=== PATIENT | male | born 1975 | race Caucasian/White ===

== ENCOUNTER 2020-07-18 15:00 | Emergency (ER) | payer OTHER, SELFPAY ==
--- NOTE | ~2020-07-18 | XR_ITS ---
EXAMINATION: XR chest 2V DATE: 07/18/2020 15:43 INDICATION: Left upper chest pain. TECHNIQUE: Frontal and lateral views of the chest were obtained. COMPARISON: CT abdomen and pelvis 02/07/2017 FINDINGS: There are airspace opacities in right perihilar region. No pleural effusion or pneumothorax . The heart size is normal. IMPRESSION: 1. Airspace opacities in right perihilar region, consistent with atelectasis versus pneumonia. Reviewed, dictated and finalized at location A. ERCIAL COLLECTOR IMPRESSION: 1. Airspace opacities in right perihilar region, consistent with atelectasis ve rsus pneumonia.
[2020-07-18 15:06] VITALS: BP 156/97; PULSE 73; RESP 18; TEMP 36.8; O2SAT 100
--- NOTE | 2020-07-18 15:11 | ECG_ITS ---
Measurements Intervals [place] Rate: 62 P: 31 [place]: 193 QRS: -12 QRSD: 112 T: 33 QT: 405 QTc: 412 Interpretive Statements SINUS RHYTHM INTRAVENTRICULAR CONDUCTION DELAY DELAYED PRECORDIAL R/S TRANSITION BASELINE WANDER- II, AVF, V3 BORDERLINE ECG Electronically Signed On 07-18-2020 16:28:28 BAG PATCHER by Jesus Castaneda D.O.
[2020-07-18 15:18] LABS: Basophils Absolute Auto 0.1 K/mm3 (0.0-0.1); Basophils Percent Auto 1.1 % (0.2-1.2); Eosinophils Absolute Auto 0.1 K/mm3 (0-0.3); Eosinophils Percent Auto 1.9 % (0-4.4); Hematocrit 44.1 % (42.0-52.0); Hemoglobin 15.7 g/dL (14.0-18.0); Immature Granulocyte Absolute 0.01 K/mm3 (0.00-0.031); Immature Granulocyte Percent A 0.1 % (0-0.5); Lymphocytes Absolute Auto 2.45 K/mm3 (0.9-3.2); Mean Corpuscular HGB Conc 35.6 g/dl (32-36); Mean Corpuscular Hemoglobin 30.6 pg (26-34); Mean Platelet Volume 9.3 fl (7.4-10.4); Monocytes Absolute Auto 0.5 K/mm3 (0.1-0.6); Monocytes Percent Auto 7.4 % (2.6-8.5); Neutrophils Absolute Auto 3.8 K/mm3 (1.3-6.7); Neutrophils Percent Auto 54.5 % (45.5-73.1); Platelet Count Result 274 k/mm3 (150-375); Red Blood Count 5.13 M/mm3 (4.6-6.20); Red Cell Distribution Width 12.6 % (11.5-14.5)
--- NOTE | 2020-07-18 15:21 | ED.CHESTPAIN ---
HPI - Chest Pain General Chief Complaint: Chest Pain Stated Complaint: Chest pain Time Seen by Provider: 07/18/20 15:11 Source: patient Mode of arrival: ambulatory Limitations: no limitations History of Present Illness HPI narrative: Patient 44-year-old male who presents with left-sided chest pain localized to the left breast that has been constant since 1 AM denies similar occurrence or other complaints on arrival in no distress continues to have pain does not take anything for his symptoms denies any radiation of the pain or other areas with pain specifically no URI symptoms or dyspnea Related Data Home Medications Medication Instructions Recorded Confirmed omeprazole 40 mg PO DAILY 07/18/20 07/18/20 Allergies Allergy/AdvReac Type Severity Reaction Status Date / Time No Known Allergies Allergy Verified 07/18/20 15:11 Review of Systems Review of Systems: All systems reviewed & are unremarkable except as noted in HPI and below PMFSH Past Medical History Medical History (Updated 07/18/20 @ 19:19 by Lopez Rodrigez PA-C) Obesity Social History Social History (Updated 07/18/20 @ 15:22 by Lopez Rodrigez PA-C) Smoking status: Never smoker Gender identity (if verbalized by the patient): Male Exam Narrative: Exam Narrative: GENERAL: Well-appearing, obese, and in no acute distress. HEAD: Normocephalic, atraumatic. EYES: PERRLA and EOMI. ENT: Nares clear, no rhinorrhea or epistaxis. Mucous membranes moist. CHEST: Clear to auscultation. No respiratory distress. No wheezes rales or rhonchi HEART: Regular rate and rhythm. No murmur heard. Normal peripheral pulses. ABDOMEN: Soft, nontender, nondistended EXTREMITIES: Normal range of motion. No edema. SKIN: Warm, dry, no rash. NEURO: No focal deficits. Alert and oriented x3. PSYCH: Normal mood and affect. Course Course Emergency Course: Patient evaluated for chest pain emergency department no high risk changes and evaluation no distress resting comfortably felt appropriate for outpatient reevaluation by primary care patient provided with reasons to return vital signs and ABCs intact and stable Vital Signs Vital signs: Vital Signs Temperature 98.2 F 07/18/20 15:06 Pulse Rate 73 07/18/20 15:06 Respiratory Rate 18 07/18/20 15:06 Blood Pressure 156/97 H 07/18/20 15:06 Pulse Oximetry 100 07/18/20 15:06 Temperature 98.2 F 07/18/20 15:06 Pulse Rate 66 07/18/20 18:44 Respiratory Rate 20 07/18/20 18:44 Blood Pressure 145/88 H 07/18/20 18:44 Pulse Oximetry 100 07/18/20 18:44 MDM - Chest Pain MDM Narrative Medical decision making narrative: Patients EKGs and labs are without significant high risk changes. Cardiac risk factors were reviewed. Patient is felt likely to be low risk for ACS and reasonable for further risk stratification testing as an outpatient. Pain was not sudden or maximal in onset without tearing or ripping. quality. No other signs or symptoms to suggest aortic dissection. A low-risk Wells criteria is noted. PE is felt to be unlikely. No pneumonia or URI symptoms were seen on evaluation today. Patient is felt to b reasonable for continued evaluation as an outpatient. Patient will be Covid swab given his chest x-ray although he has no URI symptoms. Patient aware that he needs to follow with primary care to obtain his results and that he cannot get them himself Lab Data Result diagrams: 07/18/20 15:13 07/18/20 15:13 Labs: Lab Results 07/18/20 07/18/20 07/18/20 Range/Units 15:13 15:13 15:13 WBC 7.0 (4.5-10.0) K/mm3 RBC 5.13 (4.6-6.20) M/mm3 Hgb 15.7 (14.0-18.0) g/dL Hct 44.1 (42.0-52.0) % MCV 86.0 (80-100) fl MCH 30.6 (26-34) pg MCHC 35.6 (32-36) g/dl RDW 12.6 (11.5-14.5) % Plt Count 274 (150-375) k/mm3 MPV 9.3 (7.4-10.4) fl Immature Gran % (Auto) 0.1 (0-0.5) % Neut % (Auto) 54.5 (45.5-73.1) % Lymph % (Auto) 3
[2020-07-18] MEDS: KETOROLAC 30 MG/ML VIAL (*BKC) IV PUSH (15:27)
[2020-07-18 15:28] LABS: Partial Thromboplastin Time 28.6 SECONDS (22.3-36.8); Prothrombin Time 13.3 Seconds (11.1-14.7)
[2020-07-18 15:31] LABS: Anion Gap 6 mmol/L (8-16); Blood Urea Nitrogen 9 mg/dL (9-20); Calcium 9.3 mg/dL (8.4-10.2); Carbon Dioxide 34 mmol/L (22-30); Chloride 101 mmol/L (98-107); Estimated CRCL calculation 122 ml/min; Estimated Glomerular Filt Rate > 60; Glucose 85 mg/dL (75-110); Potassium 3.5 mmol/L (3.4-5.0); Sodium 141 mmol/L (137-145)
[2020-07-18 15:43] LABS: D Dimer 0.27 ug/mL (<0.48); Troponin I < 0.012 ng/mL (0.000-0.034)
[2020-07-18 16:31] VITALS: BP 134/85; PULSE 57; RESP 20; O2SAT 99
[2020-07-18 17:06] VITALS: BP 141/84; PULSE 63; RESP 20; O2SAT 99
[2020-07-18 18:08] VITALS: BP 145/88; PULSE 63; RESP 20; O2SAT 100
[2020-07-18 18:44] VITALS: BP 145/88; PULSE 66; RESP 20; O2SAT 100
[2020-07-18 19:10] LABS: Troponin I < 0.012 ng/mL (0.000-0.034)
[2020-07-18 19:29] VITALS: BP 150/98; PULSE 65; RESP 14; O2SAT 98
[2020-07-19 19:06] LABS: SARS-CoV-2 RNA PCR Negative
== END 2020-07-18 19:37 | disposition home or self-care (01) ==
PROVIDERS: Emergency Medicine; Emergency Medicine Emergency Medical Services; Emergency Provider Emergency Medicine; PCP Nurse Practitioner Family
DX: R07.9 Chest pain, unspecified (principal); Z20.822 Contact with and (suspected) exposure to COVID-19; E66.9 Obesity, unspecified; Z68.31 Body mass index [BMI] 31.0-31.9, adult; I45.9 Conduction disorder, unspecified; R94.31 Abnormal electrocardiogram [ECG] [EKG]
CPT/HCPCS: 36415; 71046; 80048; 84484; 85025; 85380; 85610; 85730; 93005; 96374; 99284; C9803; J1885; U0003

== ENCOUNTER 2020-11-11 17:51 | Emergency (ER) | payer OTHER, SELFPAY ==
--- NOTE | ~2020-11-11 | XR_ITS ---
EXAMINATION: XR chest 2V DATE: 11/11/2020 18:24 INDICATION: Chest pain. TECHNIQUE: Frontal and lateral views of the chest were obtained. COMPARISON: Chest 2 views 07/18/2020, CT abdomen and pelvis 02/07/2017 FINDINGS: The chest demonstrates clear lungs without pneumonia, pleural effusion, or pneumothorax. Th e heart size is normal. IMPRESSION: 1. No acute cardiopulmonary disease. Reviewed, dictated and finalized at location A.
--- NOTE | 2020-11-11 17:53 | ECG_ITS ---
Measurements Intervals [place] Rate: 62 P: 45 [place]: 197 QRS: -11 QRSD: 113 T: 32 QT: 429 QTc: 438 Interpretive Statements SINUS RHYTHM INTRAVENTRICULAR CONDUCTION DELAY DELAYED PRECORDIAL R/S TRANSITION BORDERLINE ECG Electronically Signed On 11-12-2020 7:45:41 CDT by Jesus Castaneda D.O.
[2020-11-11 17:58] VITALS: BP 155/99; PULSE 61; RESP 14; TEMP 37.1; O2SAT 99
[2020-11-11 18:03] VITALS: PULSE 61
[2020-11-11 18:14] LABS: Basophils Absolute Auto 0.1 K/mm3 (0.0-0.1); Eosinophils Absolute Auto 0.2 K/mm3 (0-0.3); Eosinophils Percent Auto 3.4 % (0-4.4); Hematocrit 40.8 % (42.0-52.0); Hemoglobin 14.2 g/dL (14.0-18.0); Immature Granulocyte Absolute 0.01 K/mm3 (0.00-0.031); Immature Granulocyte Percent A 0.2 % (0-0.5); Lymphocytes Absolute Auto 2.21 K/mm3 (0.9-3.2); Lymphocytes Percent Auto 37.1 % (18.3-44.2); Mean Corpuscular HGB Conc 34.8 g/dl (32-36); Mean Corpuscular Volume 86.1 fl (80-100); Mean Platelet Volume 9.6 fl (7.4-10.4); Monocytes Absolute Auto 0.6 K/mm3 (0.1-0.6); Monocytes Percent Auto 9.2 % (2.6-8.5); Neutrophils Absolute Auto 2.9 K/mm3 (1.3-6.7); Neutrophils Percent Auto 49.1 % (45.5-73.1); Platelet Count Result 250 k/mm3 (150-375); Red Blood Count 4.74 M/mm3 (4.6-6.20); Red Cell Distribution Width 12.6 % (11.5-14.5)
[2020-11-11 18:23] LABS: Anion Gap 6 mmol/L (8-16); Blood Urea Nitrogen 9 mg/dL (9-20); Calcium 9.4 mg/dL (8.4-10.2); Carbon Dioxide 30 mmol/L (22-30); Chloride 106 mmol/L (98-107); Estimated CRCL calculation 140 ml/min; Estimated Glomerular Filt Rate > 60; Glucose 105 mg/dL (75-110); Potassium 3.4 mmol/L (3.4-5.0); Sodium 142 mmol/L (137-145)
[2020-11-11 18:28] LABS: Partial Thromboplastin Time 29.5 SECONDS (22.3-36.8); Prothrombin Time 13.3 Seconds (11.1-14.7)
[2020-11-11 18:35] LABS: Troponin I < 0.012 ng/mL (0.000-0.034)
[2020-11-11] MEDS: KETOROLAC 30 MG/ML VIAL (*BKC) IV PUSH (18:47)
--- NOTE | 2020-11-11 19:05 | ED.CHESTPAIN ---
HPI - Chest Pain General Chief Complaint: Chest Pain Stated Complaint: ongoing cp Time Seen by Provider: 11/11/20 17:59 Source: patient, RN notes reviewed and old records reviewed Mode of arrival: ambulatory Limitations: no limitations History of Present Illness HPI narrative: Patient is a 45-year-old male who presents with left-sided chest pain into the shoulder has had this pain for the last several days has been constant and has actually been having this pain off and on now for weeks or even months patient has not followed up with primary care has been seen in the emergency department for similar occurrence patient has not taken anything for his symptoms and on arrival to emergency department is in no distress resting comfortably patient denies any pertinent past medical history Related Data Home Medications Medication Instructions Recorded Confirmed No Home Medications 11/11/20 11/11/20 Allergies Allergy/AdvReac Type Severity Reaction Status Date / Time No Known Allergies Allergy Verified 07/18/20 15:11 Review of Systems Review of Systems: All systems reviewed & are unremarkable except as noted in HPI and below PMFSH Past Medical History Medical History Obesity Social History Social History Smoking status: Never smoker Gender identity (if verbalized by the patient): Male Exam Narrative: Exam Narrative: GENERAL: Well-appearing, well-nourished, and in no acute distress. HEAD: Normocephalic, atraumatic. EYES: PERRLA and EOMI. ENT: Nares clear, no rhinorrhea or epistaxis. Mucous membranes moist. Oropharynx without tonsillar hypertrophy exudate or other lesions. NECK: Supple. No adenopathy or masses. CHEST: Clear to auscultation. No respiratory distress. No wheezes rales or rhonchi HEART: Regular rate and rhythm. No murmur heard. Normal peripheral pulses. ABDOMEN: Soft, nontender, nondistended EXTREMITIES: Normal range of motion. No edema. SKIN: Warm, dry, no rash. NEURO: No focal deficits. Alert and oriented x3. Cranial nerves II through XII grossly intact PSYCH: Normal mood and affect. Course Vital Signs Vital signs: Vital Signs Temperature 98.7 F 11/11/20 17:58 Pulse Rate 61 11/11/20 17:58 Respiratory Rate 14 11/11/20 17:58 Blood Pressure 155/99 H 11/11/20 17:58 Pulse Oximetry 99 11/11/20 17:58 Temperature 98.7 F 11/11/20 17:58 Pulse Rate 61 11/11/20 18:03 Respiratory Rate 14 11/11/20 17:58 Blood Pressure 155/99 H 11/11/20 17:58 Pulse Oximetry 99 11/11/20 17:58 MDM - Chest Pain MDM Narrative Medical decision making narrative: Patients EKGs and labs are without significant high risk changes. Cardiac risk factors were reviewed. Patient is felt likely to be low risk for ACS and reasonable for further risk stratification testing as an outpatient. Pain was not sudden or maximal in onset without tearing or ripping. quality. No other signs or symptoms to suggest aortic dissection. A low-risk Wells criteria is noted. PE is felt to be unlikely. No pneumonia or URI symptoms were seen on evaluation today. Patient is felt to b reasonable for continued evaluation as an outpatient. Lab Data Result diagrams: 11/11/20 18:05 11/11/20 18:05 Labs: Lab Results 11/11/20 11/11/20 11/11/20 Range/Units 18:05 18:05 18:05 WBC 6.0 (4.5-10.0) K/mm3 RBC 4.74 (4.6-6.20) M/mm3 Hgb 14.2 (14.0-18.0) g/dL Hct 40.8 L (42.0-52.0) % MCV 86.1 (80-100) fl MCH 30.0 (26-34) pg MCHC 34.8 (32-36) g/dl RDW 12.6 (11.5-14.5) % Plt Count 250 (150-375) k/mm3 MPV 9.6 (7.4-10.4) fl Immature Gran % (Auto) 0.2 (0-0.5) % Neut % (Auto) 49.1 (45.5-73.1) % Lymph % (Auto) 37.1 (18.3-44.2) % Gem % (Auto) 9.2 H (2.6-8.5) % Eos % (Auto) 3.4 (0-4.4) % Baso % (Auto) 1.0 (0.2-1.2)
[2020-11-11 19:44] VITALS: BP 130/84; PULSE 59; RESP 18; O2SAT 98
[2020-11-11 19:56] VITALS: BP 135/92; PULSE 59; RESP 18; O2SAT 99
== END 2020-11-11 20:05 | disposition home or self-care (01) ==
PROVIDERS: Emergency Medicine; Emergency Provider Family Medicine
DX: R07.9 Chest pain, unspecified (principal); E66.9 Obesity, unspecified; Z68.33 Body mass index [BMI] 33.0-33.9, adult; I45.9 Conduction disorder, unspecified
CPT/HCPCS: 36415; 71046; 80048; 84484; 85025; 85610; 85730; 93005; 96374; 99284; J1885

== ENCOUNTER 2020-12-01 01:10 | Emergency (ER) | payer BC, OTHER, SELFPAY ==
--- NOTE | ~2020-12-01 | CT_ITS ---
EXAMINATION: CT abdomen pelvis w con INDICATION: Abdominal pain TECHNIQUE: Computed tomographic images of the abdomen and pelvis were obtained after the administrati on of 100 cc of Omnipaque 350 intravenous contrast. The dose-length product (DLP) was 986.28 mGy-cm. Automated exposure control and iterative reconstruction technique were employed. COMPARISON: 02/07/2017 FINDINGS: Minimal dependent atelectasis is present in the lung bases. The heart size is normal. Calci fied coronary artery atherosclerosis is noted. The liver is diffusely low in attenuation when compare d with the spleen, consistent with hepatic steatosis. The spleen, pancreas, and adrenal glands are no rmal. There are multiple stones in the gallbladder which is mildly distended. One stone is seen at th e gallbladder neck. The kidneys are unremarkable. No pathologically enlarged abdominal or pelvic lymp h nodes are identified. There is no free intraperitoneal gas or evidence of bowel obstruction. There is chronic mild enlargement of the appendix without additional findings to suggest appendicitis. Ther e is a fat-containing umbilical hernia. There is mild lumbar spondylosis. IMPRESSION: 1. Cholelithiasis and mildly distended gallbladder. Correlate for right upper quadrant tenderness and if present, consider ultrasound and/or nuclear hepatobiliary scan. These findings and recommendations were transmitted to the Emergency Department at 0337 hours on 12/01 by the [employer] Radiologist. Reviewed, dictated and finalized at location A. IMPRESSION: 1. Cholelithiasis and mildly distended gallbladder. Correlate for right upper q uadrant tenderness and if present, consider ultrasound and/or nuclear hepatobil iary scan. These findings and recommendations were transmitted to the Emergency Department at 0337 hours on 12/01/2020 by the [employer] Radiologist.
[2020-12-01 01:13] VITALS: BP 165/105; PULSE 63; RESP 29; TEMP 36.7; O2SAT 100
--- NOTE | 2020-12-01 01:19 | ECG_ITS ---
Measurements Intervals [place] Rate: 67 P: 33 [place]: 192 QRS: 0 QRSD: 98 T: 37 QT: 399 QTc: 421 Interpretive Statements SINUS RHYTHM WITH SINUS ARRHYTHMIA BASELINE ARTIFACT- I, II, III, AVR, AVL, AVF, V1, V5 NORMAL ECG Electronically Signed On 12-01-2020 7:02:41 CDT by Jesus Castaneda D.O.
--- NOTE | 2020-12-01 01:36 | ED.ABDPAIN ---
HPI - Abdominal Pain General Chief Complaint: Abdominal Pain Stated Complaint: pt sts abd pain for last few hours Time Seen by Provider: 12/01/20 01:16 Source: patient Mode of arrival: ambulatory Limitations: no limitations History of Present Illness HPI narrative: Patient is a 45-year-old male complaining of abdominal pain, mid abdomen, 10 out of 10, sharp, radiating to back that started approximately 2 hours prior to arrival. Patient denies any chest pain, shortness of breath, nausea, vomiting, diarrhea, fever or chills. Related Data Home Medications Medication Instructions Recorded Confirmed No Home Medications 11/11/20 11/11/20 Allergies Allergy/AdvReac Type Severity Reaction Status Date / Time No Known Allergies Allergy Verified 12/01/20 01:19 Review of Systems Review of Systems: All systems reviewed & are unremarkable except as noted in HPI and below Constitutional: Constitutional: Denies body ache(s), Denies chills, Denies excessive sweating, Denies fatigue, Denies fever(s), Denies headache(s), Denies lethargy, Denies malaise, Denies weakness and Denies weight loss Eyes: Eyes: Denies blurry vision, Denies change in vision and Denies loss of vision ENT: Denies dizziness, Denies ear discharge, Denies headache(s), Denies lip swelling, Denies epistaxis, Denies nasal congestion, Denies neck pain, Denies throat swelling and Denies tongue swelling Cardiovascular: Cardiovascular: Denies chest pain, Denies chest pain at rest, Denies chest pain with activity, Denies diaphoresis, Denies rapid heart rate, Denies edema, Denies irregular heart rhythm, Denies lightheadedness, Denies palpitations, Denies dyspnea and Denies dyspnea on exertion Respiratory: Respiratory: Denies chest congestion, Denies cough, Denies hemoptysis, Denies dyspnea and Denies dyspnea on exertion Gastrointestinal: Gastrointestinal: Denies melena, Denies hematochezia, Denies diarrhea, Denies nausea, Denies vomiting and Denies hematemesis Musculoskeletal: Musculoskeletal: Denies abnormal gait, Denies deformity, Denies joint swelling, Denies limited range of motion, Denies neck pain and Denies numbness Neurologic: Denies Abnormal speech present, Denies abnormal gait, Denies confusion, Denies dizziness, Denies headache(s), Denies focal weakness, Denies loss of vision, Denies numbness, Denies Other visual disturbances, Denies Sensory deficit (Neuro) and Denies weakness Psychiatric: Psychiatric: Denies confusion, Denies depression, Denies auditory hallucinations, Denies homicidal ideation and Denies suicidal ideation Endocrine: Endocrine: Denies cold intolerance, Denies excessive sweating, Denies fatigue, Denies heat intolerance and Denies palpitations Hematologic/Lymphatic: Hematologic/Lymphatic: Denies easy bleeding and Denies easy bruising Allergic/Immunologic: Allergic/Immunologic: Denies lip swelling, Denies throat swelling and Denies tongue swelling PMFSH Past Medical History Medical History Obesity Social History Social History Smoking status: Never smoker Gender identity (if verbalized by the patient): Male Comments Past medical history: None Family history: Noncontributory Social history: Non-smoker, no EtOH or drug use Exam Const: General: cooperative, healthy appearing, comfortable, no acute distress, well developed, alert and awake; No confusion Orientation/consciousness: oriented to person, oriented to place, oriented to time, patient oriented x3 and No confusion Limitations: no limitations HENMT: Head: normal to inspection, normocephalic and atraumatic Ears: hearing grossly normal bilaterally, TM normal on the right and TM normal on the left General nose exam: Normal external nose present, Normal nares present and No nasal discharge present Face and sinus: normal facial exam Mouth: Yes Normal oral and palatal mucosa p
[2020-12-01] MEDS: SODIUM CHLORIDE 0.9% IV 1,000 ML 999 ML IV CONT (01:52)
[2020-12-01] MEDS: KETOROLAC 30 MG/ML VIAL (*BKC) IV PUSH (01:56)
--- NOTE | 2020-12-01 01:58 | PC.NURSE ---
Pt upset when I walked into room. Slammed hand down on table due to the pain, pt knocked everything off table. PT apologized.
[2020-12-01 01:59] VITALS: BP 151/97; PULSE 53; RESP 17; O2SAT 100
[2020-12-01 02:04] LABS: Basophils Absolute Auto 0.1 K/mm3 (0.0-0.1); Basophils Percent Auto 0.8 % (0.2-1.2); Eosinophils Absolute Auto 0.2 K/mm3 (0-0.3); Eosinophils Percent Auto 2.5 % (0-4.4); Hematocrit 45.1 % (42.0-52.0); Hemoglobin 15.8 g/dL (14.0-18.0); Immature Granulocyte Absolute 0.01 K/mm3 (0.00-0.031); Immature Granulocyte Percent A 0.1 % (0-0.5); Lymphocytes Absolute Auto 2.97 K/mm3 (0.9-3.2); Lymphocytes Percent Auto 38.8 % (18.3-44.2); Mean Corpuscular Hemoglobin 30.1 pg (26-34); Mean Corpuscular Volume 85.9 fl (80-100); Mean Platelet Volume 10.2 fl (7.4-10.4); Monocytes Absolute Auto 0.6 K/mm3 (0.1-0.6); Monocytes Percent Auto 7.3 % (2.6-8.5); Neutrophils Absolute Auto 3.9 K/mm3 (1.3-6.7); Neutrophils Percent Auto 50.5 % (45.5-73.1); Platelet Count Result 201 k/mm3 (150-375); Red Blood Count 5.25 M/mm3 (4.6-6.20); Red Cell Distribution Width 12.6 % (11.5-14.5); White Blood Count 7.7 K/mm3 (4.5-10.0)
[2020-12-01 02:26] LABS: INR 0.9; Prothrombin Time 12.7 Seconds (11.1-14.7)
[2020-12-01 02:27] LABS: Partial Thromboplastin Time 20.5 SECONDS (22.3-36.8)
[2020-12-01 02:38] LABS: Alanine Aminotransferase 56 U/L (4-50); Albumin Level 4.8 g/dL (3.5-5.1); Alkaline Phosphatase 64 U/L (38-126); Anion Gap 10 mmol/L (8-16); Aspartate Amino Transferase 45 U/L (17-59); Bilirubin,Total 0.8 mg/dL (0.2-1.3); Blood Urea Nitrogen 10 mg/dL (9-20); Calcium 10.2 mg/dL (8.4-10.2); Carbon Dioxide 30 mmol/L (22-30); Chloride 104 mmol/L (98-107); Estimated CRCL calculation 123 ml/min; Estimated Glomerular Filt Rate > 60; Glucose 127 mg/dL (75-110); Lipase 79 U/L (23-300); Potassium 3.5 mmol/L (3.4-5.0); Sodium 144 mmol/L (137-145)
[2020-12-01 02:53] LABS: Add Urine Microscopic? NO; Appearance Urine Clear (Clear); Bilirubin Urine Negative (Negative); Blood Urine Negative (Negative); Color Urine Straw (Yellow); Glucose Urine UA Negative (Negative); Ketones Urine Negative (Negative); Leukocyte Esterase Ur Negative LEU/UL (Negative); Nitrate Urine Negative (Negative); Protein Urine Negative (Negative); Specific Grav Ur 1.019 (1.001-1.035); Urobilinogen Urine Negative mg/dL (<2.0)
[2020-12-01 03:44] VITALS: BP 155/78; PULSE 88; RESP 22; O2SAT 100
[2020-12-01 03:44] LABS: Amphetamine Screen Urine Negative (Negative); Barbiturate Screen Urine Negative (Negative); Benzodiazepines Screen Urine Negative (Negative); Cannabinoid Screen Urine Negative (Negative); Cocaine Screen Urine Negative (Negative); Methadone Screen Urine Negative (Negative); Opiate Screen Urine Negative (Negative); Phencyclidine Screen Urine Negative (Negative)
[2020-12-01] MEDS: HYDROcodone/acetaminophen (*CRX) 5-325 MG TABLET 1 TAB PO (04:54)
--- NOTE | 2020-12-01 04:55 | PC.NURSE ---
Pt refuse morphine and GI meds. states he wants to drive home and that this isn't acid reflux education given, pt continues to refuse.
[2020-12-01 04:57] VITALS: BP 146/70; PULSE 88; RESP 18; O2SAT 100
== END 2020-12-01 04:57 | disposition home or self-care (01) ==
PROVIDERS: Emergency Provider Emergency Medicine
DX: K80.70 Calculus of gallbladder and bile duct without cholecystitis without obstruction (principal)
CPT/HCPCS: 36415; 74177; 80053; 80307; 81003; 83690; 85025; 85610; 85730; 93005; 96361; 96374; 99284; A9270; J1885; J7030; Q9967

== ENCOUNTER → 2020-12-11 01:44 | Outpatient (CLI) | payer BC, OTHER, SELFPAY ==
[2020-12-11 19:37] LABS: SARS-CoV-2 RNA PCR Negative
== END ==
PROVIDERS: Visit Provider Surgery
DX: Z01.812 Encounter for preprocedural laboratory examination (principal); Z20.822 Contact with and (suspected) exposure to COVID-19
CPT/HCPCS: C9803; U0003; U0005

== ENCOUNTER 2020-12-14 01:12 | Day surgery (SDC) | payer BC, OTHER, SELFPAY ==
[2020-12-14] VITALS (7 sets, daily range): BP systolic 127–154; BP diastolic 78–95; PULSE 56–80; RESP 15–20; TEMP 36.1–36.3; O2SAT 92–100; BMI 32.8
--- NOTE | 2020-12-14 08:09 | WPDANESEPPF ---
Anes - Initial Pre Proc Eval Procedure: Operation Date: 12/14/20 10:00 Proposed Procedures p Laparoscopic Cholecystectomy, Possible Open - Dov Hernandez DO Date/Time: 12/14/20 08:09 Surgeon: Dov Hernandez DO Pre Op Diagnosis: symptomatic cholelithiasis Patient Data Age: 45 Gender: M Height: 1.78 m Weight: 104 kg Allergies Allergy/AdvReac Type Severity Reaction Status Date / Time No Known Allergies Allergy Verified 12/14/20 08:05 Home Medications Medication Instructions Recorded Confirmed Type lansoprazole 15 mg capsule,delayed 15 mg PO DAILY 12/01/20 12/14/20 History release Patient hx anesthesia problems: none Family hx anesthesia problems: none PMFSH Past Medical History Medical History Depression Hernia Obesity Surgical History Surgical History H/O removal of neck cyst Family History Family History Father Heart disease Cerebrovascular accident Cancer Mother Heart disease Emphysema lung Social History Social History Smoking status: Never smoker Alcohol intake: never Substance use: never 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 Questions were solicited and answers provided to the satisfaction of the patient/family/POA.
[2020-12-14] MEDS: ACETAMINOPHEN 500 MG TABLET 1000 MG PO (08:21)
[2020-12-14] MEDS: KETOROLAC 15 MG/ML VIAL (*BKC) IV PUSH (08:46)
[2020-12-14] MEDS: LACTATED RINGERS 1,000 ML 30 ML IV CONT ×2 (08:48→11:27)
--- NOTE | 2020-12-14 10:04 | WPDHPUPDATE1 ---
History and Physical Update Update Date/Time: 12/14/20 10:04 History and Physical has been reviewed, including an updated exam of the patient. There are NO changes in the patient's condition. Risks, benefits, and alternatives have been discussed and questions answered. Patient agrees to proceed with procedure.
[2020-12-14 10:15] LABS: Amylase 36 U/L (30-110)
[2020-12-14] MEDS: ceFAZolin 2 GM/D5W 50 ML 2 GM/50 ML BAG IVPB (10:22)
[2020-12-14] MEDS: BUPIVACAINE/EPINEPHRINE 0.5% 10 ML VIAL 30 ML INFILTRATE (10:52)
--- NOTE | 2020-12-14 11:23 | W.PM.PROC2 ---
Procedure Note - Detailed Date of Procedure 12/14/20 Pre-op Diagnosis symptomatic cholelithiasis Post-op Diagnosis same Procedure Performed Laparoscopic Cholecystectomy Surgeon Dov Hernandez, Anesthesia general and local (0.5% bupivacaine with epinephrine) Indications This is a 45-year-old man who presented to the emergency department on 12/01/2020 with complaints of upper abdominal pain with nausea. Workup in the emergency department showed evidence of cholelithiasis. There is no evidence of acute cholecystitis on imaging and his white blood count and liver enzymes were normal. He was then seen in the office in follow-up and discussions were made with the patient about treatment options. Decision was made to proceed with laparoscopic cholecystectomy, possible open. Findings Her laparoscopic cholecystectomy was performed. The gallbladder had a few pericholecystic adhesions. Showed no other significant abnormalities were identified. The cystic duct appeared normal in size. The gallbladder was removed and sent to the lab for pathology. Description of Procedure Procedure as well as risks, benefits, and alternatives were discussed with patient. Written consent was obtained and placed in chart prior to procedure. The patient was brought back to surgical suite. Patient was placed in supine position on operating table. Time-out was done to confirm patient and procedure. Patient was then intubated by the anesthesia department. Abdomen was prepped and draped in sterile fashion using chlorhexidine prep. 0.5% bupivacaine with epinephrine was infiltrated at each site of incision. A 5 millimeter incision was made near the umbilicus, and a 5 millimeter Optiview trocar was advanced through the abdominal layers under direct visualization. Once inside the abdominal cavity, carbon dioxide was insufflated to create a pneumoperitoneum. The camera was inserted and the abdomen was inspected. No immediate abnormalities were identified. The patient was placed in reverse Trendelenburg position and rotated slightly to the left. An 11 millimeter incision was made in the subxiphoid region, and an 11 millimeter trocar was inserted under direct visualization. Two 5 millimeter incisions were made in the right upper quadrant, and two 5 millimeter trocars were inserted under direct visualization. The gallbladder was identified and grasped at the fundus and retracted superiorly. It was then grasped at the infundibulum retracted laterally. Careful dissection around the neck of the gallbladder was performed using blunt dissection with a [place] grasper and hook electrocautery. The cystic duct was identified, and a window was created behind it. The cystic artery was also identified and a window was created behind it. The critical view of safety was identified, visualizing the cystic duct running directly into the neck of the gallbladder, and the cystic artery running directly into the wall of the gallbladder. A 5 millimeter clip crop adjuster was then used to place 2 clips proximally and 1 clip distally on both the cystic duct and cystic artery. They were then both transected using endoscopic scissors. Once safely away from the angelina hepatitis, the gallbladder was dissected free from the liver bed using hook electrocautery. Hemostasis was achieved along the way. The gallbladder was removed completely and then removed through the subxiphoid port. The liver bed was then inspected. Hemostasis appeared adequate, and our clips appeared secure. The area was gently irrigated with sterile saline. No other abnormalities were seen. The patient was flattened out in bed, and 1 final inspection was made around the abdominal cavity. The subxiphoid port was removed, and a Osman Trung cone was used to approximate the fascia with an 0-Vicryl simple interrupted suture. The remaining ports were then removed under direct visualization, the camera was removed, and the pneumoperitoneum was rel
== END 2020-12-14 13:47 | disposition home or self-care (01) ==
PROVIDERS: Visit Provider Surgery
PROC: 0FT44ZZ Resection of Gallbladder, Percutaneous Endoscopic Approach (ICD-10-PCS; CPT 47562; principal; 2020-12-14 10:00)
DX: K80.12 Calculus of gallbladder with acute and chronic cholecystitis without obstruction (principal); F32.9 Major depressive disorder, single episode, unspecified; R10.11 Right upper quadrant pain; K42.9 Umbilical hernia without obstruction or gangrene
CPT/HCPCS: 47562; 36415; 82150; 86850; 86900; 86901; 88304; A9270; J0330; J0690; J1100; J1885; J2250; J2370; J2704; J2710; J3010; J7030; J7120

== ENCOUNTER 2021-03-19 16:16 | Emergency (ER) | payer BC, SELFPAY ==
--- NOTE | ~2021-03-19 | XR_ITS ---
XR chest 1V portable 03/19/2021 17:39 Indication: Shortness of breath. Covid. Procedure: AP portable chest Comparison: Comparison to multiple prior studies sequentially, with oldest reviewed study dated 07/18. Findings: Heart size normal. Bilateral airspace disease is present. No pleural effusion or pneumothor ax. Impression: 1: Extensive bilateral airspace disease which may represent pneumonia or edema. Reviewed, dictated and finalized at location A. Impression: 1: Extensive bilateral airspace disease which may represent pneumonia or edema.
--- NOTE | ~2021-03-19 | CT_ITS ---
EXAMINATION: CTA chest PE protocol DATE: 03/19/2021 20:40 CDT INDICATION: Shortness of breath TECHNIQUE: Computed tomographic angiography (CTA) of the chest was performed with 100 mL Omnipaque-35 0 intravenous contrast. The dose-length product was 521.27 mGy-cm. Maximum intensity projection 3D-re constructions of the aorta and other arteries were constructed by the technologist on a separate work station. Automated exposure control and iterative reconstruction technique were employed. COMPARISON: None. FINDINGS: Study is technically adequate without evidence for pulmonary embolism. No significant pleur al or pericardial effusion. Heart size is normal. There is mediastinal lymphadenopathy. For instance right paratracheal lymph node measures approximately 1.9 cm short axis. The upper abdomen is unremark able. There is patchy groundglass opacity throughout both lungs, consistent with pneumonia. No endobr onchial lesions. No pneumothorax. Small hiatal hernia. IMPRESSION: 1. Patchy bilateral groundglass areas of consolidation throughout both lungs, compatible with pneumon ia. Reviewed, dictated and finalized at location A. IMPRESSION: 1. Patchy bilateral groundglass areas of consolidation throughout both lungs, c ompatible with pneumonia.
[2021-03-19 16:18] VITALS: BP 132/73; PULSE 101; RESP 28; TEMP 36.1; O2SAT 95
--- NOTE | 2021-03-19 16:24 | ECG_ITS ---
Measurements Intervals [place] Rate: 95 P: 49 [place]: 175 QRS: -18 QRSD: 106 T: 34 QT: 354 QTc: 446 Interpretive Statements SINUS RHYTHM BORDERLINE R WAVE PROGRESSION, ANTERIOR LEADS BORDERLINE ECG Electronically Signed On 03-19-2021 18:35:23 CDT by Jesus Castaneda D.O.
[2021-03-19 16:40] LABS: Basophils Percent Auto 0.2 % (0.2-1.2); Hematocrit 42.1 % (42.0-52.0); Hemoglobin 14.5 g/dL (14.0-18.0); Immature Granulocyte Absolute 0.02 K/mm3 (0.00-0.031); Immature Granulocyte Percent A 0.5 % (0-0.5); Lymphocytes Absolute Auto 0.84 K/mm3 (0.9-3.2); Lymphocytes Percent Auto 20.3 % (18.3-44.2); Mean Corpuscular HGB Conc 34.4 g/dl (32-36); Mean Corpuscular Hemoglobin 28.3 pg (26-34); Mean Corpuscular Volume 82.2 fl (80-100); Mean Platelet Volume 9.6 fl (7.4-10.4); Monocytes Absolute Auto 0.3 K/mm3 (0.1-0.6); Monocytes Percent Auto 7.7 % (2.6-8.5); Neutrophils Percent Auto 71.3 % (45.5-73.1); Platelet Count Result 156 k/mm3 (150-375); Red Blood Count 5.12 M/mm3 (4.6-6.20); Red Cell Distribution Width 13.3 % (11.5-14.5); White Blood Count 4.1 K/mm3 (4.5-10.0)
[2021-03-19 16:53] LABS: Anion Gap 12 mmol/L (8-16); Blood Urea Nitrogen 10 mg/dL (9-20); Calcium 8.9 mg/dL (8.4-10.2); Carbon Dioxide 26 mmol/L (22-30); Chloride 99 mmol/L (98-107); Estimated CRCL calculation 123 ml/min; Estimated Glomerular Filt Rate > 60; Glucose 113 mg/dL (65-110); Potassium 3.2 mmol/L (3.4-5.0); Sodium 137 mmol/L (137-145)
[2021-03-19 20:03] VITALS: BP 129/79; PULSE 85; PULSE 86; RESP 24; TEMP 37.7; O2SAT 95
[2021-03-19] MEDS: BENZONATATE 100 MG CAPSULE 200 MG PO (20:12)
--- NOTE | 2021-03-19 20:19 | PC.NURSE ---
CT notified that patient has IV access
--- NOTE | 2021-03-19 21:16 | ED.GENADULT ---
HPI - General Adult General Chief complaint: Shortness of Breath/Dyspnea Stated complaint: pos covid test/sob Time Seen by Provider: 03/19/21 19:07 History of Present Illness HPI narrative: Patient is a 45-year-old gentleman who presents the emergency department with chief complaint of cough and COVID-19. The patient reports that he was diagnosed with Covid on reports that he had symptoms since then patient reports symptoms or not improved by anything and reports he has been coughing and feels as though he has pneumonia. The patient reports that he has had pneumonia before in the past and this feels similar to that. The patient reports symptoms or not improved by anything or they worsened by anything. Related Data Home Medications Medication Instructions Recorded Confirmed lansoprazole 15 mg capsule,delayed 15 mg PO DAILY 12/01/20 12/31/20 release Allergies Allergy/AdvReac Type Severity Reaction Status Date / Time No Known Allergies Allergy Verified 03/19/21 20:10 Review of Systems Review of Systems: A 10 system review of systems was completed on the patient and is negative except for what is stated in the HPI. Nursing and ancillary documentation was reviewed. 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 HEAD: Normocephalic, atraumatic. EYES: PERRLA and EOMI. ENT: Nares clear, no rhinorrhea or epistaxis. Mucous membranes moist. NECK: Supple. CHEST: Clear to auscultation. No respiratory distress. HEART: Regular rate and rhythm. No murmur heard. Normal peripheral pulses. ABDOMEN: Soft, nontender, nondistended, normal active bowel sounds. EXTREMITIES: Normal range of motion. No edema. SKIN: Warm, dry, no rash. NEURO: No focal deficits. Alert and oriented x3. PSYCH: Normal mood and affect. Course Vital Signs Vital signs: Vital Signs Temperature 36.1 C L 03/19/21 16:18 Pulse Rate 101 H 03/19/21 16:18 Respiratory Rate 28 H 03/19/21 16:18 Blood Pressure 132/73 03/19/21 16:18 Pulse Oximetry 95 03/19/21 16:18 Temperature 37.7 C H 03/19/21 20:03 Pulse Rate 86 03/19/21 20:03 Respiratory Rate 24 H 03/19/21 20:03 Blood Pressure 129/79 03/19/21 20:03 Pulse Oximetry 95 03/19/21 20:03 Medical Decision Making Vital Signs Vital Signs: Vital Signs Temperature 36.1 C L 03/19/21 16:18 Pulse Rate 101 H 03/19/21 16:18 Respiratory Rate 28 H 03/19/21 16:18 Blood Pressure 132/73 03/19/21 16:18 Pulse Oximetry 95 03/19/21 16:18 Temperature 37.7 C H 03/19/21 20:03 Pulse Rate 86 03/19/21 20:03 Respiratory Rate 24 H 03/19/21 20:03 Blood Pressure 129/79 03/19/21 20:03 Pulse Oximetry 95 03/19/21 20:03 Lab Data Result diagrams: 03/19/21 16:26 03/19/21 16:26 Labs: Lab Results 03/19/21 03/19/21 Range/Units 16:26 16:26 WBC 4.1 L (4.5-10.0) K/mm3 RBC 5.12 (4.6-6.20) M/mm3 Hgb 14.5 (14.0-18.0) g/dL Hct 42.1 (42.0-52.0) % MCV 82.2 (80-100) fl MCH 28.3 (26-34) pg MCHC 34.4 (32-36) g/dl RDW 13.3 (11.5-14.5) % Plt Count 156 (150-375) k/mm3 MPV 9.6 (7.4-10.4) fl Immature Gran % (Auto) 0.5 (0-0.5) % Ne
[2021-03-19 22:46] VITALS: BP 129/81; PULSE 92; RESP 33; TEMP 37.7; O2SAT 93
== END 2021-03-19 22:50 | disposition home or self-care (01) ==
PROVIDERS: Emergency Medicine; Emergency Provider Emergency Medicine
DX: U07.1 COVID-19 (principal); J12.82 Pneumonia due to coronavirus disease 2019; E66.9 Obesity, unspecified; Z68.33 Body mass index [BMI] 33.0-33.9, adult; R94.31 Abnormal electrocardiogram [ECG] [EKG]
CPT/HCPCS: 36415; 71045; 71275; 80048; 85025; 93005; 94640; 99284; A9270; Q9967

== ENCOUNTER 2022-08-20 10:10 | Emergency (ER) | payer BC, SELFPAY ==
[2022-08-20 10:13] VITALS: BP 170/106; PULSE 79; RESP 20; TEMP 36.1; O2SAT 99
--- NOTE | 2022-08-20 11:26 | ED.EYEPROB ---
HPI - Eye Problem General Chief complaint: Eye Problems Stated complaint: bug bite left eye Time Seen by Provider: 08/20/22 10:57 History of Present Illness HPI Narrative: This is a 46-year-old male with no significant past medical history, who presents to the emergency department with concerns for swelling of the left eye. States he believes he was bitten by an insect on the face several days ago with resulting swelling and erythema over the left cheek and left lower eyelid he was seen at an urgent care yesterday and started on Keflex. Today he noted the swelling continued to worsen and was concerned. He denies pain, loss of vision or headache. He notes some tenderness to the left neck. Related Data Home Medications Medication Instructions Recorded Confirmed cephalexin 500 mg capsule 500 mg PO Q8H 08/20/22 Allergies Allergy/AdvReac Type Severity Reaction Status Date / Time No Known Allergies Allergy Verified 03/19/21 20:10 Review of Systems Review of Systems: CONSTITUTIONAL: Denies fever, chills, or sweats. EYES: Denies visual changes, redness, or discharge. ENT: Denies rhinorrhea, congestion, sore throat, or otalgia. CARDIOVASCULAR: Denies chest pain, palpitations, or edema. RESPIRATORY: Denies cough or dyspnea. SKIN: Redness and swelling of the left cheek and lower eyelid denies itching. MUSCULOSKELETAL: Denies back pain, joint pain, or myalgia. NEUROLOGIC: Denies headache, numbness, dizziness, or weakness. PSYCHIATRIC: Denies anxiety or depression. 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 HEAD: Normocephalic, atraumatic. EYES: PERRLA and EOMI. Erythema and mild swelling of the left inferior eyelid and left cheek. No noted proptosis. The patient denies pain with extraocular movements. Normal funduscopic exam ENT: Nares clear, no rhinorrhea or epistaxis. Mucous membranes moist. Oropharynx without tonsillar hypertrophy exudate or other lesions. NECK: Supple. Mild left anterior cervical adenopathy or masses. No carotid bruits or JVD CHEST: Clear to auscultation. No respiratory distress. No wheezes rales or rhonchi HEART: Regular rate and rhythm. No murmur heard. Normal peripheral pulses. EXTREMITIES: Normal range of motion. No edema. NEURO: No focal deficits. Alert and oriented x3. PSYCH: Normal mood and affect. Course Course Emergency Course: 11:30 - Exam is consistent with cellulitis. Bedside ultrasound performed by me shows cobblestoning without discrete fluid collection concerning for abscess. I advised the patient that he may have continued swelling while his oral antibiotics reach therapeutic concentration. I recommended that he continue his Keflex as previously prescribed. I discussed return and emergency precautions including signs/symptoms of orbital cellulitis and airway compromise. The patient voiced understanding and is comfortable with the plan. All questions answered to his satisfaction. Vital Signs Vital signs: Vital Signs Temperature 97.0 F L 08/20/22 10:13 Pulse Rate 79 08/20/22 10:13 Respiratory Rate 20 08/20/22 10:13 Blood Pressure 170/106 H 08/20/22 10:13 Pul
== END 2022-08-20 12:10 | disposition home or self-care (01) ==
PROVIDERS: Emergency Provider Preventive Medicine Aerospace Medicine
DX: L03.211 Cellulitis of face (principal); E66.9 Obesity, unspecified; Z68.34 Body mass index [BMI] 34.0-34.9, adult
CPT/HCPCS: 99281

== ENCOUNTER 2023-03-16 02:59 | Emergency (ER) | payer BC, SELFPAY ==
[2023-03-16] VITALS (14 sets, daily range): BP systolic 165–169; BP diastolic 80–126; PULSE 59–72; RESP 6–20; TEMP 36.9; O2SAT 98–100
--- NOTE | ~2023-03-16 | CT_ITS ---
CT of the Abdomen and Pelvis: Indication: Abdominal pain Technique: 2.5 mm axial scans were obtained through the abdomen and pelvis following intravenous adm inistration of 100 cc of Omnipaque 350. Dose reduction technique was used on this scan by utilizing a utomated exposure control and iterative reconstruction technique. The dose-length product (DLP) was 9 90.12 mGy-cm. COMPARISON: 12/01/2020 Findings: Scans through the lung bases are unremarkable. The liver, spleen, pancreas, adrenals and kidneys are within normal limits. Cholecystectomy clips are present. No evidence of aortic aneurysm. No lymphadenopathy. No bowel obstruction or bowel wall thickening. There is no evidence to suggest acute appendicitis. Images through the pelvis were performed. Urinary bladder unremarkable. Prostate gland and seminal ve sicles are unremarkable. No ascites. Impression: No significant abnormalities seen. Reviewed, dictated and finalized at [facility]. Impression: No significant abnormalities seen.
[2023-03-16 04:13] LABS: Basophils Absolute Auto 0.1 K/mm3 (0.0-0.1); Basophils Percent Auto 1.3 % (0.2-1.2); Eosinophils Absolute Auto 0.2 K/mm3 (0-0.3); Eosinophils Percent Auto 3.6 % (0-4.4); Hematocrit 41.3 % (42.0-52.0); Hemoglobin 13.3 g/dL (14.0-18.0); Immature Granulocyte Absolute 0.01 K/mm3 (0.00-0.031); Immature Granulocyte Percent A 0.2 % (0-0.5); Lymphocytes Absolute Auto 1.76 K/mm3 (0.9-3.2); Lymphocytes Percent Auto 33.3 % (18.3-44.2); Mean Corpuscular HGB Conc 32.2 g/dl (32-36); Mean Corpuscular Hemoglobin 25.4 pg (26-34); Mean Platelet Volume 9.1 fl (7.4-10.4); Monocytes Absolute Auto 0.5 K/mm3 (0.1-0.6); Monocytes Percent Auto 9.3 % (2.6-8.5); Neutrophils Absolute Auto 2.8 K/mm3 (1.3-6.7); Neutrophils Percent Auto 52.3 % (45.5-73.1); Platelet Count Result 258 k/mm3 (150-375); Red Blood Count 5.23 M/mm3 (4.6-6.20); Red Cell Distribution Width 13.9 % (11.5-14.5); White Blood Count 5.3 K/mm3 (4.5-10.0)
[2023-03-16 04:26] LABS: Appearance Urine Clear (Clear); Bilirubin Urine Negative (Negative); Blood Urine Negative (Negative); Color Urine Yellow (Yellow); Glucose Urine UA Negative (Negative); Ketones Urine Negative (Negative); Leukocyte Esterase Ur Negative LEU/UL (Negative); Nitrate Urine Negative (Negative); Protein Urine Negative (Negative); Specific Grav Ur 1.007 (1.001-1.035); Urobilinogen Urine 0.2 mg/dL (<2.0); pH Urine 6.5 (5.0-9.0)
[2023-03-16 04:27] LABS: Add Urine Microscopic? NO
[2023-03-16 04:27] LABS: Alanine Aminotransferase 29 U/L (6-50); Alkaline Phosphatase 54 U/L (38-126); Anion Gap 10 mmol/L (8-16); Aspartate Amino Transferase 32 U/L (17-59); Bilirubin,Total 0.4 mg/dL (0.2-1.3); Blood Urea Nitrogen 11 mg/dL (9-20); Carbon Dioxide 27 mmol/L (22-30); Chloride 103 mmol/L (98-107); Estimated CRCL calculation 154 ml/min; Estimated Glomerular Filt Rate > 60; Glucose 113 mg/dL (65-110); Lipase 84 U/L (23-300); Potassium 3.6 mmol/L (3.4-5.0); Sodium 140 mmol/L (137-145)
[2023-03-16 04:28] LABS: Lactic Acid Reflex 1.5 mmol/L (0.7-2.0)
--- NOTE | 2023-03-16 06:13 | ED.GENADULT ---
HPI - General Adult General Chief complaint: Abdominal Pain Stated complaint: abd pain Time Seen by Provider: 03/16/23 03:47 History of Present Illness HPI narrative: this is a 47-year-old male presenting with abdominal pain. Started yesterday at 3:00 p.m. and is a sharp pain along the left flank and left abdomen. It is 3/10 intensity and constant. Patient has never experienced this pain in the exacerbating alleviating factors. Patient has had 2 days of diarrhea. He denies fever chills nausea vomiting chest pain difficulty breathing or urinary symptoms. No history of kidney stones. No history of diverticulitis. Related Data Home Medications Medication Instructions Recorded Confirmed cephalexin 500 mg capsule 500 mg PO Q8H 08/20/22 Allergies Allergy/AdvReac Type Severity Reaction Status Date / Time No Known Allergies Allergy Verified 03/16/23 04:00 [facility] Past Medical History Medical History Depression Hernia Obesity Surgical History Surgical History H/O removal of neck cyst Hx laparoscopic cholecystectomy Family History Family History Father Heart disease Cerebrovascular accident Cancer Mother Heart disease Emphysema lung Social History Social History Alcohol intake: never Substance use: never Living arrangements: alone Occupation/Education: occupation 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 Head: atraumatic. EYES: EOMI, NOSE: Atraumatic NECK: Trachea midline RESPIRATORY: No increased rate of breathing clear to auscultation CARDIOVASCULAR: RRR, ABDOMINAL: Soft nontender no guarding rebound, no CVA tenderness MUSCULOSKELETAl: No obvious deformities NEURO: Alert. Moving 4/4 extremities SKIN:: Warm, dry. Normal color PSYCHIATRIC: Normal affect Course Vital Signs Vital signs: Vital Signs Temperature 98.5 F 03/16/23 03:02 Pulse Rate 66 03/16/23 03:02 Respiratory Rate 20 03/16/23 03:02 Blood Pressure 169/80 H 03/16/23 03:02 Pulse Oximetry 100 03/16/23 03:02 Oxygen Delivery Room Air 03/16/23 03:02 Temperature 98.5 F 03/16/23 03:02 Pulse Rate 59 L 03/16/23 04:30 Respiratory Rate 13 03/16/23 04:30 Blood Pressure 165/126 H 03/16/23 04:01 Pulse Oximetry 98 03/16/23 04:30 Oxygen Delivery Room Air 03/16/23 03:02 Medical Decision Making MDM Narrative Medical decision making narrative: -Course: 47-year-old male presenting with diarrhea and abdominal discomfort. Laboratory studies and CT were negative. Vital signs are stable the patient has an benign abdominal exam. Patient will be discharged with return precautions. 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 Urine not indicative of infection. CT abdomen pelvis unremarkable. -Shared decision making / Disposition: Discharged with return precautions. Vital Signs Vital Signs: Vital Signs Temperature 98.5 F 03/16/23 03:02 Pulse Rate 66 03/16/23 03:02 Respiratory Rate 20 03/16/23 03:02 Blood Pressure 169/80 H 03/16/23 03:02 Pulse Oximetry 100 03/16/23 03:02 Oxygen Delivery Room Air 03/16/23 03:02 Temperature 98.5 F 03/16/23 03:02 Pulse Rate 59 L 03/16/23 04:30 Respiratory Rate 13 03/16/23 04:30 Blood Pressure 165/126 H 03/16/23 04:01 Pulse Oximetry 98 03/16/23 04:30 Oxygen Delivery Room Air 03/16/23 03:02 Lab Data 03/16/23 04:07
== END 2023-03-16 06:35 | disposition home or self-care (01) ==
PROVIDERS: Emergency Provider Emergency Medicine
DX: R10.9 Unspecified abdominal pain (principal); R19.7 Diarrhea, unspecified; F32.A Depression, unspecified
CPT/HCPCS: 36415; 74177; 80053; 81003; 83605; 83690; 85025; 99284; Q9967

== ENCOUNTER 2023-04-26 01:50 | Day surgery (SDC) | payer BC, SELFPAY ==
[2023-04-19 09:19] VITALS: BMI 33.0
[2023-04-26 06:52] VITALS: BP 133/88; PULSE 79; RESP 20; TEMP 36.3; O2SAT 99; BMI 31.2
[2023-04-26] MEDS: LACTATED RINGERS 1,000 ML 150 ML IV CONT (07:09)
--- NOTE | 2023-04-26 07:32 | WPDANESEPPF ---
Anes - Initial Pre Proc Eval Procedure: Operation Date: 04/26/23 08:30 Proposed Procedures p Esophagogastroduodenoscopy & Screening Colonoscopy - Dov Hernandez DO Date/Time: 04/26/23 07:32 Surgeon: Dov Hernandez DO Pre Op Diagnosis: GERD, neoplasm screening Patient Data Age: 47 Gender: M Height: 1.78 m Weight: 98.8 kg Last Vital Signs Temp 97.3 F L 04/26/23 06:52 Pulse 79 04/26/23 06:52 Resp 20 04/26/23 06:52 BP 133/88 04/26/23 06:52 Pulse Ox 99 04/26/23 06:52 O2 Del Method Room Air 04/26/23 06:52 Allergies Allergy/AdvReac Type Severity Reaction Status Date / Time No Known Allergies Allergy Verified 04/26/23 06:50 Home Medications Medication Instructions Recorded Confirmed Type lansoprazole 30 mg capsule,delayed 30 mg PO DAILY 04/19/23 04/26/23 History release Patient hx anesthesia problems: none Family hx anesthesia problems: none Results Review: All pre-operative results and documents have been reviewed as part of the pre-operative evaluation. [facility] Past Medical History Medical History Depression Hernia Obesity Surgical History Surgical History H/O removal of neck cyst Hx laparoscopic cholecystectomy Family History Family History Father Heart disease Cerebrovascular accident Cancer Mother Heart disease Emphysema lung Other Diabetes mellitus Social History Social History Smoking status: Never smoker Alcohol intake: current Drinks per week: 1 Alcohol use details: red wine Substance use: never Substance use type: does not use Living arrangements: alone Occupation/Education: occupation Additional occupation/education comments: [employer] Gender identity (if verbalized by the patient): Male Spiritual care concerns: No Anes - Eval Final PreProcedure Day of Procedure 04/26/23 07:32 Patient weight: normal Heart: regular rate and rhythm Lungs: clear to auscultation Airway: Mallampati scale class II Neurological: alert and oriented Last oral intake: >/= 8 hours ASA classification: II Emergent: no Anesthetic plan: proceed Anesthesia type and monitoring: general GIVS and standard monitoring Results Review: All pre-operative results and documents have been reviewed as part of the pre-operative evaluation. Informed Consent: The patient's anesthetic plan and its attendant risks and benefits were discussed with the patient/family/POA. Questions were solicited and answers provided to the satisfaction of the patient/family/POA.
--- NOTE | 2023-04-26 07:52 | WPDHPUPDATE1 ---
History and Physical Update Update Date/Time: 04/26/23 07:52 History and Physical has been reviewed, including an updated exam of the patient. There are NO changes in the patient's condition. Risks, benefits, and alternatives have been discussed and questions answered. Patient agrees to proceed with procedure.
--- NOTE | 2023-04-26 08:18 | SUR.OPER ---
EGD: [id number] COLON: Start 817
[2023-04-26 08:37] VITALS: BP 92/49; PULSE 72; RESP 19; O2SAT 93
[2023-04-26 08:47] VITALS: BP 99/64; PULSE 71; RESP 16; O2SAT 97
[2023-04-26 08:57] VITALS: BP 119/78; PULSE 82; RESP 18; O2SAT 99
== END 2023-04-26 09:29 | disposition home or self-care (01) ==
PROVIDERS: Visit Provider Surgery
PROC: 0DJ08ZZ Inspection of Upper Intestinal Tract, Via Natural or Artificial Opening Endoscopic (ICD-10-PCS; CPT 43235; principal; 2023-04-26 08:30)
DX: Z12.11 Encounter for screening for malignant neoplasm of colon (principal); K62.1 Rectal polyp; K57.30 Diverticulosis of large intestine without perforation or abscess without bleeding; K64.8 Other hemorrhoids; K22.70 Barrett's esophagus without dysplasia; K44.9 Diaphragmatic hernia without obstruction or gangrene; K29.30 Chronic superficial gastritis without bleeding; K22.89 Other specified disease of esophagus; K21.9 Gastro-esophageal reflux disease without esophagitis
CPT/HCPCS: 45380; 43239; 87081; 88305; J2704; J7120

== ENCOUNTER 2023-08-28 08:33 | Outpatient (CLI) | payer BC, SELFPAY | END 2023-08-28 08:34 | disposition home or self-care (01) | LOC: ANHSURGERY 08:39 | PROVIDERS: Visit Provider Surgery | DX: Z01.818 Encounter for other preprocedural examination (principal); K44.9 Diaphragmatic hernia without obstruction or gangrene | CPT/HCPCS: 36415; 86850; 86900; 86901 ==

== ENCOUNTER 2023-09-04 00:18 | Day surgery (SDC) | payer BC, SELFPAY ==
[2023-08-23 17:28] VITALS: BMI 34.0
--- NOTE | 2023-08-23 18:01 | PC.NURSE ---
Report to the Outpatient Waiting Room, entrance under the green pavilion located off [facility], at 0630 on 09-04-23. Planned Procedure Time: 0830. Time changes happen often and if your time is changed the preop area will call you the afternoon before. - You and your visitor will be asked to self-screen and do not enter if you have any COVID symptoms. - A mask is optional within the hospital at this time. Patients may have clear liquids (water, carbonated beverages, clear teas, apple juice) until 3 hours prior to surgery with a maximum of 20 ounces. 0530 -Per order set, patient may have clear liquids only for dinner day before surgery (Broth, water, white soda, apple juice) - No food from midnight until time of surgery - Infants may have breast milk until 4 hours before surgery, formula 6 hours prior to surgery. - Children will be allowed to drink immediately following surgery. If applicable, please bring a bottle or sippy cup to assist with drinking. Juice, water, soda, and popsicles are readily available. For infants on formula, please bring formula the day of surgery. Pacifiers are allowed. Take the following medications with a SIP of water the morning of surgery: None DO NOT STOP ANY OF YOUR OTHER PRESCRIPTION MEDICATIONS PRIOR TO SURGERY ?EXCEPT THE FOLLOWING Medications to discontinue per physician: Vitamins and supplements Date to take last dose: 09-01-23 Please no make-up, nail congolese, hairspray, perfume, deodorant, or body powder the day of surgery. No jewelry (including any body piercings) or valuables the day of surgery, leave them at home. Please take a shower or bath the night before, or the morning of, surgery with an antibacterial soap. Wear comfortable, loose fitting clothing. Children are encouraged to wear pajamas. - Jewelry must be removed prior to entering the operating room. Rings and piercings that are not removed may be cut off. - The hospital will not accept responsibility for valuables. - Please leave all valuables, including medications, at home the day of surgery. If you are going home after surgery, a licensed otr driver must drive you home. - NO public transportation without another adult if you receive anesthesia. - We recommend that an adult stay with you for 24 hours following discharge. - We also recommend that you do not drive, make important decision, drink alcoholic beverages, or take any drugs that were not prescribed by your health care provider for at least 24 hours after your discharge time. For Pediatric surgeries, we recommend two adults accompany the child home. Follow any additional instructions given to you from your surgeon. If you or anyone in your household have experienced Covid symptoms in the past week, please notify your surgeon or the nurse liaison at the phone number below for possible testing. Telephone instructions given to Riley Arana and asked if any additional questions and then verbalized understanding. Patient advised to call surgeon office or pre surgery nurse liaison [phone] if any additional questions.
[2023-09-04] VITALS (15 sets, daily range): BP systolic 117–203; BP diastolic 70–108; PULSE 66–101; RESP 12–99; TEMP 36.2–36.9; O2SAT 92–100
--- NOTE | 2023-09-04 07:20 | WPDANESEPPF ---
Anes - Initial Pre Proc Eval Procedure: Operation Date: 09/04/23 08:30 Proposed Procedures p Laparoscopic Hiatal Hernia Repair with Fundoplication, Davinci Assisted - Dov Hernandez DO Date/Time: 09/04/23 07:20 Surgeon: Dov Hernandez DO Pre Op Diagnosis: Chronic Acid Reflux, Hiatal Hernia Patient Data Age: 47 Gender: M Height: 1.75 m Weight: 104.33 kg Allergies Allergy/AdvReac Type Severity Reaction Status Date / Time No Known Allergies Allergy Verified 08/23/23 17:25 Home Medications Medication Instructions Recorded Confirmed Type lansoprazole 30 mg capsule,delayed 30 mg PO DAILY 04/19/23 08/23/23 History release [id number] 200 mcg-vit K 100 1 cap PO DAILY 08/23/23 08/23/23 History mcg-lycop 500 [id number] capsule (Daily Multivitamin) omega-3 fatty acids-fish oil 684 1 cap PO DAILY 08/23/23 08/23/23 History mg-1,200 mg capsule,delayed release Patient hx anesthesia problems: none Family hx anesthesia problems: none Results Review: All pre-operative results and documents have been reviewed as part of the pre-operative evaluation. [facility] Past Medical History Medical History Depression Hernia Obesity Surgical History Surgical History H/O removal of neck cyst Hx laparoscopic cholecystectomy Family History Family History Father Heart disease Cerebrovascular accident Cancer Mother Heart disease Emphysema lung Other Diabetes mellitus Social History Social History Smoking status: Never smoker Second hand tobacco smoke exposure: No Alcohol intake: never Drinks per week: 1 Alcohol use details: red wine Substance use: current Substance use type: does not use Living arrangements: alone Occupation/Education: occupation 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 Informed Consent: The patient's anesthetic plan and its attendant risks and benefits were discussed with the patient/family/POA. Questions were solicited and answers provided to the satisfaction of the patient/family/POA.
--- NOTE | 2023-09-04 07:33 | WPDHPUPDATE1 ---
History and Physical Update Update Date/Time: 09/04/23 07:33 History and Physical has been reviewed, including an updated exam of the patient. There are NO changes in the patient's condition. Risks, benefits, and alternatives have been discussed and questions answered. Patient agrees to proceed with procedure.
[2023-09-04] MEDS: LACTATED RINGERS 1,000 ML 30 ML IV CONT ×2 (08:10→10:51)
[2023-09-04] MEDS: ceFAZolin 2 GM/D5W 50 ML 2 GM/50 ML BAG IVPB (08:12)
[2023-09-04] MEDS: BUPIVACAINE/EPINEPHRINE 0.5% 30 ML VIAL INFILTRATE (08:35)
--- NOTE | 2023-09-04 10:45 | W.PM.PROC2 ---
Procedure Note - Detailed Date of Procedure 09/04/23 Pre-op Diagnosis GERD, Malagon's Esophagitis, Hiatal Hernia Post-op Diagnosis Same Procedure Performed Robotic assisted laparoscopic sliding hiatal hernia repair with 270 degree fundoplication Surgeon Dov Hernandez, DO Anesthesia General and Local (0.5% bupivicaine with epi) Indications Is a 47-year-old man who presented with persistent gastroesophageal reflux. He has had a long history of GERD symptoms and has been on PPI for years. Any EGD done recently showed evidence of a small hiatal hernia and esophagitis with Malagon's. He underwent esophageal manometry which showed normal esophageal motility. Esophageal pH study was offered to patient he did not feel he could stop his PPI for long enough period of time to get the study completed. Discussions were then made with the patient about treatment options and decision was made to proceed with robotic assisted laparoscopic hiatal hernia repair with fundoplication. Findings Laparoscopic hiatal hernia repair with 270 degree fundoplication was performed. The patient was found have a type 1 sliding hiatal hernia. After carefully dissecting out the hiatus and hernia sac from the right and left bruce, I then was able to repair the hiatal hernia using an 0 V lock permanent suture. I then chose to perform a 270 degree fundoplication for anti reflux procedure. No other significant abnormalities were identified. No specimens were obtained for pathology. Description of Procedure Procedure as well as risks, benefits, and alternatives were discussed with the patient. Written consent was obtained and placed in chart prior to procedure. Patient was brought back to surgical suite. She was placed supine on operating table. Time-out was done to confirm patient and procedure. She was then intubated by the anesthesia department. Her abdomen was prepped and draped in sterile fashion using chlorhexidine prep. 0.5% bupivacaine with epinephrine was infiltrated locally around each area for port placement. An 8 mm incision was made in the left upper quadrant 2 cm inferior to the costal margin in the mid clavicular line. A 5 mm Optiview trocar was then advanced through the abdominal layers under direct visualization. Once inside the abdominal cavity, carbon dioxide insufflation was used to create a pneumoperitoneum. The camera was inserted in the abdomen was inspected. No immediate abnormalities were identified. Another 8 mm camera port was placed about 15 cm inferior to the xiphoid just to the left of midline under direct visualization. An 8 mm port was placed in the anterior axillary line on the left upper quadrant at about the same transverse plane as the camera port. An 8 mm port was placed in the right upper quadrant and another 8 mm AirSeal assist port was placed in right lower quadrant just to the right of the umbilicus. A 5 mm incision was made in the subxiphoid region and the Bhargav liver retractor was inserted through this incision into the abdominal cavity to lift up the left lobe of the liver. This was secured in place to the bed of the table. The patient was then placed in 30? reverse Trendelenburg. The robotic arms were secured to the ports and the robotic camera and instruments were inserted. A force bipolar grasper was placed in the right upper quadrant port. The vessel sealer was placed in the midclavicular left upper quadrant port and a Cadiere grasper was placed in the anterior axillary line left upper quadrant port. I then moved over to the robotic console took control of the camera and instruments. A careful thorough exam was performed throughout the abdomen. The stomach was then reduced from within the hiatal hernia. The gastrohepatic ligament was taken down medially using the vessel sealer to identify the right bruce. Peritoneum along the medial side of the right bruce was then divided using the vessel sealer. This allowed me to enter into t
[2023-09-04] MEDS: HYDROmorphone HCL INJ (*CRX) 1 MG/ML SYR 0.25 MG IV PUSH ×2 (11:10→11:15)
--- NOTE | 2023-09-04 11:28 | SUR.PHASEI ---
1128: Simple mask removed.
--- NOTE | 2023-09-04 12:30 | SUR.PHASEI ---
1210: Patient meets PACU discharge criteria, unit RN unavailable at this time. Patient placed in extended recovery status.
--- NOTE | 2023-09-04 12:55 | ADMGEN ---
This patient, Riley Arana, was admitted to [facility] Surg Room 328-01. Patient/family oriented to hospital policies and general routines including ID bracelet, bed and alarms, visiting hours, pain management, procedures, bathroom and other care routines, personal items, smoking policy, room service/diet, and visiting hours. Information on how to activate the Rapid Response Team has been discussed. Patient/Family are encouraged to report perceived risks to care and to ask questions if they do not understand what they are told or what they should do.
[2023-09-04] MEDS: MAG HYDROX/AL HYDROX/SIMETH 30 ML UDC PO (19:44)
[2023-09-04] MEDS: hydrALAZINE HCL 20 MG/ML VIAL 10 MG IV PUSH (19:44)
[2023-09-04] MEDS: ONDANSETRON INJ 4 MG/2 ML VIAL IV PUSH (20:10)
[2023-09-05 00:40] VITALS: BP 196/92; PULSE 96; RESP 20; TEMP 36.3; O2SAT 94
[2023-09-05] MEDS: hydrALAZINE HCL 20 MG/ML VIAL 10 MG IV PUSH ×3 (01:55→15:55)
[2023-09-05 05:35] VITALS: BP 170/95; PULSE 46; RESP 18; TEMP 37.5; O2SAT 100
[2023-09-05 06:27] LABS: Hematocrit 43.1 % (42.0-52.0); Mean Corpuscular HGB Conc 32.5 g/dl (32-36); Mean Corpuscular Volume 80.1 fl (80-100); Mean Platelet Volume 9.5 fl (7.4-10.4); Platelet Count Result 269 k/mm3 (150-375); Red Blood Count 5.38 M/mm3 (4.6-6.20)
[2023-09-05 06:44] LABS: Anion Gap 9 mmol/L (8-16); Blood Urea Nitrogen 9 mg/dL (9-20); Calcium 9.1 mg/dL (8.4-10.2); Carbon Dioxide 26 mmol/L (22-30); Chloride 101 mmol/L (98-107); Estimated CRCL calculation 134 ml/min; Estimated Glomerular Filt Rate > 60; Glucose 122 mg/dL (65-110); Sodium 136 mmol/L (137-145)
[2023-09-05 08:00] VITALS: BP 153/92; PULSE 100; RESP 18; TEMP 37.9; O2SAT 94
[2023-09-05] MEDS: PANTOPRAZOLE 40 MG TABLET PO (08:12)
[2023-09-05] MEDS: ACETAMINOPHEN 325 MG TABLET 650 MG PO (08:12)
[2023-09-05] MEDS: ENOXAPARIN 40 MG/0.4 ML SYRINGE SUB-Q (08:13)
[2023-09-05] MEDS: oxyCODONE HCL (*CRX) 2.5 MG TAB IR PO (08:13)
[2023-09-05 10:31] VITALS: BP 151/87; PULSE 85; RESP 18; TEMP 36.8; O2SAT 95
[2023-09-05 14:31] VITALS: BP 169/88; PULSE 92; RESP 16; TEMP 37.7; O2SAT 96
[2023-09-05] MEDS: oxyCODONE HCL (*CRX) 5 MG TAB IR PO (14:49)
--- NOTE | 2023-09-05 15:40 | PM.PNGS ---
Progress Note: A&P Assessment and Plan (1) GERD (gastroesophageal reflux disease): Qualifiers: Esophagitis presence: esophagitis presence not specified Qualified Code(s): K21.9 - Gastro-esophageal reflux disease without esophagitis Code(s): K21.9 - Gastro-esophageal reflux disease without esophagitis Status: Acute Assessment and Plan: Tolerating full liquids. Patient still having some pain and requiring some assistance with activity. Will plan to keep one more night and discharge home tomorrow if improving. (2) Malagon esophagus: Qualifiers: Malagon's esophagus type: without dysplasia Qualified Code(s): K22.70 - Malagon's esophagus without dysplasia Code(s): K22.70 - Malagon's esophagus without dysplasia Status: Acute (3) Hiatal hernia: Code(s): K44.9 - Diaphragmatic hernia without obstruction or gangrene Status: Acute Subjective Subjective Date/Time Seen: 09/05/23 15:40 Interval history: Tolerating diet. Pain controlled. Mostly just getting gas pains in right shoulder still. Passing flatus. No significant dysphagia with clears or full liquids. Exam GI: Inspection: incision (intact with glue) GI Palp: Yes Soft to palpation and Yes Tenderness to palpation present (GI) (minimal incisional) Objective Data Vital Signs Vital Signs: Vital Signs - 24 hr 09/04/23 16:00 09/04/23 19:07 09/04/23 20:00 Temperature 36.2 C L 36.9 C Pulse Rate 101 H 98 Respiratory Rate 15 16 Blood Pressure 157/98 H 203/108 H Pulse Oximetry 92 96 Oxygen Delivery Room Air 09/04/23 20:55 09/05/23 00:40 09/05/23 05:35 Temperature 36.3 C L 36.3 C L 37.5 C Pulse Rate 100 96 46 L Respiratory Rate 18 20 18 Blood Pressure 154/98 H 196/92 H 170/95 H Pulse Oximetry 95 94 100 Oxygen Delivery 09/05/23 08:00 09/05/23 08:00 09/05/23 10:31 Temperature 37.9 C H 36.8 C Pulse Rate 100 85 Respiratory Rate 18 18 Blood Pressure 153/92 H 151/87 H Pulse Oximetry 94 95 Oxygen Delivery Room Air Intake/Output Intake/Output: Intake & Output 09/02/23 09/03/23 09/04/23 09/05/23 23:59 23:59 23:59 23:59 Intake Total 1770 1450 Balance 1770 1450 Meds/Results Medications: Active Medications Generic Name Dose Route Start Last Admin Trade Name Freq PRN Reason Stop Dose Admin Acetaminophen 650 mg 09/04/23 12:46 09/05/23 08:12 Acetaminophen 325 Mg Tablet PO 650 mg Q6H PRN Administration Mild Pain (1-3) or Fever Al Hydrox/Mg Hydrox/Simethicone 30 ml 09/04/23 19:26 09/04/23 19:44 Mag Hydrox/Al Hydrox/Simeth 30 Ml Udc PO 30 ml Q6H PRN Administration Indigestion Diphenhydramine HCl 25 mg 09/04/23 12:46 Diphenhydramine Hcl Inj 50 Mg/Ml Vial IV PUSH Q6H PRN Itching Enoxaparin Sodium 40 mg 09/05/23 09:00 09/05/23 08:13 Enoxaparin 40 Mg/0.4 Ml Syringe SUB-Q 40 mg DAILY KATELYN Administration Hydralazine HCl 10 mg 09/04/23 19:27 09/05/23 08:12 Hydralazine Hcl 20 Mg/Ml Vial IV PUSH 10 mg Q6H PRN Administration Blood Pressure - High Morphine Sulfate 2 mg 09/04/23 12:46 Morphine Sulfate (*Crx) 2 Mg/Ml Inj IV PUSH Q2H PRN Pain Rated 4-6 Morphine Sulfate 4 mg 09/04/23 12:46 Morphine Sulfate (*Crx) 4 Mg/Ml Inj IV PUSH Q2H PRN Pain Rated 7-10 Naloxone HCl 0.1 mg 09/04/23 12:46 Naloxone Hcl 0.4 Mg/Ml Vial IV PUSH Q2M PRN Opiate Reversal Ondansetron HCl 4 mg 09/04/23 12:46 09/04/23 20:10 Ondansetron Inj 4 Mg/2 Ml Vial IV PUSH 4 mg Q4H PRN Administration Nausea And Vomiting Oxycodone HCl 2.5 mg 09/04/23 12:46 09/05/23 08:13 Oxycodone Hcl (*Crx) 2.5 Mg Tab Ir PO 2.5 mg Q4H PRN Administration Pain Rated 4-6 Oxycodone HCl 5 mg 09/04/23 12:46 02/28/24 14:49 Oxycodone Hcl (*Crx) 5 Mg Tab Ir PO 5 mg Q4H PRN Administration Pain Rated 7-10 Pantoprazole Sodium 40 mg 09/05/23 09:00 09/05/23 08:12
[2023-09-05 22:00] VITALS: BP 153/82; PULSE 99; RESP 18; TEMP 37.7; O2SAT 96
[2023-09-06 06:00] VITALS: BP 139/76; PULSE 93; RESP 18; TEMP 37.5; O2SAT 95
[2023-09-06] MEDS: ENOXAPARIN 40 MG/0.4 ML SYRINGE SUB-Q (08:30)
[2023-09-06] MEDS: PANTOPRAZOLE 40 MG TABLET PO (08:30)
[2023-09-06] MEDS: ACETAMINOPHEN 325 MG TABLET 650 MG PO (08:30)
--- NOTE | 2023-09-06 12:41 | PM.DS ---
DS: Admitting Diagnosis Discharge Date 09/06/2023 Admitting Diagnosis Hiatal hernia, GERD, Malagon's esophagus DS: Discharge Diagnosis Discharge Diagnosis (1) Hiatal hernia: Code(s): K44.9 - Diaphragmatic hernia without obstruction or gangrene Status: Acute (2) GERD (gastroesophageal reflux disease): Qualifiers: Esophagitis presence: esophagitis presence not specified Qualified Code(s): K21.9 - Gastro-esophageal reflux disease without esophagitis Code(s): K21.9 - Gastro-esophageal reflux disease without esophagitis Status: Acute (3) Malagon esophagus: Qualifiers: Malagon's esophagus type: without dysplasia Qualified Code(s): K22.70 - Malagon's esophagus without dysplasia Code(s): K22.70 - Malagon's esophagus without dysplasia Status: Acute DS: Summary Hospital Course Reason for hospitalization: Hiatal hernia, GERD Hospital Course: This is a 47-year-old man who presented with refractory GERD symptoms for the past several years. He underwent laparoscopic sliding hiatal hernia repair with 270 degree fundoplication, da Katt assisted 09/04/2023. Surgery was uncomplicated and patient was placed in outpatient extended recovery. He was started on a clear liquid diet and pain was controlled with oral and IV pain medications. He was experiencing some gas pressures and high blood pressure initially on postop day 0. P.r.n. hydralazine was ordered and he was encouraged to get up and walk frequently to help out with gas pains. On postop day 1 he was tolerating clear liquids and pain was improving. He was advanced to a full liquid diet for lunch. He continued to tolerate this well without any significant dysphagia. He was still having some bloating/cramping pains and some pain radiating to his shoulder. He was kept in the hospital until postop day 2. On postop day 2 his pain was much improved. He moved his bowels and was tolerating full liquids. He was remaining hemodynamically stable. He was discharged on postop day 2. Status at Discharge Functional status at discharge: independent ambulation Overall status at discharge: patient is progressing back to baseline Time Spent with Patient Time attestation: Total time spent providing and/or coordinating discharge services: Time spent: Less than 30 minutes Exam Const: General: comfortable and no acute distress Resp: Effort & Inspection: normal respiratory effort Auscultation: clear to auscultation bilaterally Cardio: Rate: regular rate Rhythm: regular rhythm Heart sounds: S1 normal heart sound present and S2 normal heart sound present GI: Inspection: non-distended and incision (Intact with glue) GI Palp: Yes Soft to palpation, Yes Tenderness to palpation present (GI) (Incisional) and No Guarding due to palpation present (GI) Discharge Plan Discharge Patient Disposition: Home, Self-Care Discharge Instructions: DISCHARGE INSTRUCTION SHEET FOR HERNIA, GALLBLADDER AND APPENDIX SURGERIES DR. RICO PATIENT TO TAKE HOME 1. May shower, no soaking in bath x 2weeks. 2. Call office for: Wound increasingly painful or bleeding Vomiting Fever of greater than 101 degrees 3. If no bowel movement for three days, take 1 oz. (30 ml) Milk of Magnesia or MiraLax 17g 1 to 2 times daily. 4. No heavy lifting > 10-15 pounds x 4 weeks for hernia repairs and 2 weeks for laparoscopic cholecystectomy or appendectomy. 5. No driving for 3 days or while taking narcotic pain medications. 6. Ice to surgical site for 48 hours (30 min on, then 30 min off). 7. Up walking 10-30 minutes three times per day. 8. Resume previous home medications. 9. Follow-up 10-14 days in office for wound check or as previously scheduled. ([phone]) 10. Oral pain medications prescription to be sent to pharmacy. Take Tylenol 500mg every 6 hours and Ibuprofen 600mg every 6 hours for the f
== END 2023-09-06 13:45 | disposition home or self-care (01) ==
LOC: ANHSURGERY 06:31 → ANH3MEDSUR 12:52
PROVIDERS: Visit Provider Surgery
PROC: 0DV44ZZ Restriction of Esophagogastric Junction, Percutaneous Endoscopic Approach (ICD-10-PCS; CPT 43280; principal; 2023-09-04 08:30)
DX: K44.9 Diaphragmatic hernia without obstruction or gangrene (principal); K21.9 Gastro-esophageal reflux disease without esophagitis; K22.70 Barrett's esophagus without dysplasia; E66.9 Obesity, unspecified; Z68.34 Body mass index [BMI] 34.0-34.9, adult
CPT/HCPCS: 43280; S2900; 36415; 80048; 85027; A9270; J0360; J0690; J1100; J1170; J1596; J1650; J2250; J2405; J2704; J3010; J7120

== ENCOUNTER 2023-09-11 23:28 | Emergency (ER) | payer BC, SELFPAY ==
[2023-09-11 23:28] VITALS: BP 161/99; PULSE 69; RESP 16; TEMP 36.4; O2SAT 100
[2023-09-12 01:02] LABS: Basophils Absolute Auto 0.1 K/mm3 (0.0-0.1); Eosinophils Absolute Auto 0.3 K/mm3 (0-0.3); Eosinophils Percent Auto 3.7 % (0-4.4); Hematocrit 42.9 % (42.0-52.0); Hemoglobin 13.7 g/dL (14.0-18.0); Immature Granulocyte Absolute 0.02 K/mm3 (0.00-0.031); Immature Granulocyte Percent A 0.3 % (0-0.5); Lymphocytes Absolute Auto 2.29 K/mm3 (0.9-3.2); Lymphocytes Percent Auto 32.9 % (18.3-44.2); Mean Corpuscular HGB Conc 31.9 g/dl (32-36); Mean Corpuscular Hemoglobin 26.3 pg (26-34); Mean Corpuscular Volume 82.3 fl (80-100); Mean Platelet Volume 9.1 fl (7.4-10.4); Monocytes Absolute Auto 0.5 K/mm3 (0.1-0.6); Monocytes Percent Auto 6.7 % (2.6-8.5); Neutrophils Absolute Auto 3.9 K/mm3 (1.3-6.7); Neutrophils Percent Auto 55.4 % (45.5-73.1); Platelet Count Result 276 k/mm3 (150-375); Red Blood Count 5.21 M/mm3 (4.6-6.20); Red Cell Distribution Width 14.9 % (11.5-14.5)
[2023-09-12 01:05] LABS: Appearance Urine Clear (Clear); Bilirubin Urine Negative (Negative); Blood Urine Negative (Negative); Color Urine Yellow (Yellow); Glucose Urine UA Negative (Negative); Ketones Urine Negative (Negative); Leukocyte Esterase Ur Negative LEU/UL (Negative); Nitrate Urine Negative (Negative); Protein Urine Negative (Negative); Specific Grav Ur 1.015 (1.001-1.035); pH Urine 5.5 (5.0-9.0)
[2023-09-12 01:08] LABS: Add Urine Microscopic? NO
[2023-09-12 01:20] LABS: Alanine Aminotransferase 65 U/L (6-50); Albumin Level 4.6 g/dL (3.5-5.1); Alkaline Phosphatase 68 U/L (38-126); Anion Gap 9 mmol/L (8-16); Aspartate Amino Transferase 40 U/L (17-59); Blood Urea Nitrogen 7 mg/dL (9-20); Calcium 9.5 mg/dL (8.4-10.2); Carbon Dioxide 31 mmol/L (22-30); Chloride 101 mmol/L (98-107); Estimated CRCL calculation 118 ml/min; Estimated Glomerular Filt Rate > 60; Glucose 112 mg/dL (65-110); Potassium 3.8 mmol/L (3.4-5.0); Sodium 141 mmol/L (137-145)
[2023-09-12 02:07] VITALS: BP 171/112; PULSE 57; RESP 15; O2SAT 99
--- NOTE | 2023-09-12 02:25 | ED.GENADULT ---
HPI - General Adult General Chief complaint: Recheck/Abnormal Lab/Rx Stated complaint: HTN Time Seen by Provider: 09/12/23 01:51 History of Present Illness HPI narrative: Patient is a 47-year-old male who presents to the emergency department this evening due to concern for an elevated blood pressure. Patient states that approximately 1 month ago he made an appointment with a family medicine physician as he has not seen a doctor in approximately 10 years. At that time his blood pressure was slightly elevated and his PCP told him that he needs to keep a blood pressure log for the next 3 weeks and then see her for a follow-up appointment to determine if he needs to be placed on blood pressure medications. Patient states that on the 04 of September he had had all hernia surgery and leading up to his surgery due to the stress that he was going through he decided that this would not be a good time for him to monitor his blood pressure. Patient started checking his blood pressure after the surgery and admits that he has not been consistent with checking it daily since the . Patient states that the blood pressure ranges around 140-150 systolic and high SA has reached was 180-190 systolic. Patient also admits that he was prescribed [place] to take as needed for pain after his hiatal hernia surgery and is unsure if this could be related to his elevated blood pressure. Patient states that while waiting in the emergency department waiting room he made an appointment with his family doctor for Sunday of this week. Patient is currently denying any symptoms including shortness breath and headache, dizziness, lightheadedness, focal weakness, numbness and tingling. There are no other modifying, alleviating, or precipitating factors at this time. Related Data Home Medications Medication Instructions Recorded Confirmed lansoprazole 30 mg capsule,delayed 30 mg PO DAILY 04/19/23 09/04/23 release [id number] 200 mcg-vit K 100 1 cap PO DAILY 08/23/23 08/23/23 mcg-lycop 500 [id number] capsule (Daily Multivitamin) omega-3 fatty acids-fish oil 684 1 cap PO DAILY 08/23/23 08/23/23 mg-1,200 mg capsule,delayed release Allergies Allergy/AdvReac Type Severity Reaction Status Date / Time No Known Allergies Allergy Verified 09/04/23 12:58 Review of Systems Review of Systems: All systems are reviewed and are negative unless stated otherwise in the HPI. PMFSH Past Medical History Medical History Malagon esophagus Depression Hernia Obesity Surgical History Surgical History H/O removal of neck cyst Hx laparoscopic cholecystectomy Family History Family History Father Heart disease Cerebrovascular accident Cancer Mother Heart disease Emphysema lung Other Diabetes mellitus Social History Social History Smoking status: Never smoker Second hand tobacco smoke exposure: No Alcohol intake: never Drinks per week: 1 Alcohol use details: red wine Substance use: never Substance use type: does not use Do You Feel Safe in your Home?: Yes Lack of Transportation: No Lack of Food: Never True Current Housing: I Have Housing Concerned About Future Housing: No Difficulty Paying Gas/Electric Bills: No Difficulty Paying for Meds: No Currently Unemployed: No Education: High School Diploma/GED Difficulty w/ Childcare or Family Care: No Living arrangements: alone Occupation/Education: occupation 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 HEENT: PERRL, no rhinorrhea, no post nasal drip, oropharynx cl
[2023-09-12 02:41] VITALS: BP 143/94; PULSE 58; RESP 13; O2SAT 100
--- NOTE | 2023-09-12 02:52 | ECG_ITS ---
Measurements Intervals [place] Rate: 54 P: 24 MA: 204 QRS: -16 QRSD: 120 T: 40 QT: 442 QTc: 422 Interpretive Statements SINUS BRADYCARDIA INTRAVENTRICULAR CONDUCTION DELAY DELAYED PRECORDIAL R/S TRANSITION VOLTAGE CRITERIA FOR LVH BORDERLINE ECG COMPARED TO ECG 03/19/2021 16:29:22 SINUS BRADYCARDIA NOW PRESENT INTRAVENTRICULAR CONDUCTION DELAY NOW PRESENT Electronically Signed On 09-12-2023 6:36:51 ARMATURE REPAIRER by Jesus Castaneda D.O.
== END 2023-09-12 03:05 | disposition home or self-care (01) ==
LOC: ANHED 09-12 02:36
PROVIDERS: Emergency Provider Emergency Medicine; PCP Internal Medicine Cardiovascular Disease
DX: I10 Essential (primary) hypertension (principal); K22.70 Barrett's esophagus without dysplasia; E66.9 Obesity, unspecified; Z68.34 Body mass index [BMI] 34.0-34.9, adult; Z90.49 Acquired absence of other specified parts of digestive tract; R00.1 Bradycardia, unspecified; I45.9 Conduction disorder, unspecified
CPT/HCPCS: 36415; 80053; 81003; 85025; 93005; 99283